=== PATIENT | male | born 1935 | race Two or more races ===

== ENCOUNTER 2021-10-11 12:59 | Outpatient (CLI) | payer OTHER | END 2021-10-11 13:02 | disposition home or self-care (01) | LOC: LAB 12:59 | PROVIDERS: ATTEND Urology | DX: N30.00 Acute cystitis without hematuria (principal) ==

== ENCOUNTER 2021-10-12 09:40 | Outpatient (CLI) | payer OTHER | END 2021-10-12 09:44 | disposition home or self-care (01) | LOC: LAB 09:40 | PROVIDERS: ATTEND Urology | DX: I11.9 Hypertensive heart disease without heart failure (principal); R33.9 Retention of urine, unspecified ==

== ENCOUNTER 2021-10-14 10:30 | Emergency (ER) | payer OTHER ==
[~2021-10-14] VITALS: Ht 167.6 cm; Wt 62.6 kg
[2021-10-14] MEDS ORDERED: LOSARTAN-HCTZ1 EAC1 PO (11:30)
[2021-10-14] MEDS ORDERED: TAMS0.4C PO (11:30)
[2021-10-14] MEDS ORDERED: FINASTERIDE5 MG PO (11:31)
[2021-10-14] MEDS ORDERED: TRICOR145 MG PO (11:31)
[2021-10-14] MEDS ORDERED: CEFDINIR300 MG PO (11:32)
[2021-10-14] MEDS ORDERED: ANTIVER (11:32)
== END 2021-10-14 15:15 | disposition left against medical advice (07) ==
LOC: ER 10:30
DX: N39.0 Urinary tract infection, site not specified (principal); B96.5 Pseudomonas (aeruginosa) (mallei) (pseudomallei) as the cause of diseases classified elsewhere; Z16.24 Resistance to multiple antibiotics; Z87.440 Personal history of urinary (tract) infections; N40.0 Benign prostatic hyperplasia without lower urinary tract symptoms; I10 Essential (primary) hypertension

== ENCOUNTER 2021-10-17 12:42 | Outpatient (CLI) | payer OTHER ==
[~2021-10-17 12:42] MED LIST: ANTIVER; CEFDINIR300 MG PO; FINASTERIDE5 MG PO; LOSARTAN-HCTZ1 EAC1 PO; TAMS0.4C PO; TRICOR145 MG PO
== END 2021-10-17 12:43 | disposition home or self-care (01) ==
LOC: RAD 12:42
PROVIDERS: ATTEND Urology
DX: I11.9 Hypertensive heart disease without heart failure (principal)

== ENCOUNTER → 2021-10-19 | Outpatient (CLI) | payer OTHER ==
[~2021-10-19] MED LIST changes: +MECLIZINE HCL12.5 MG
== END | disposition home or self-care (01) ==
LOC: NUCLEAR 09:52
PROVIDERS: ATTEND Internal Medicine Geriatric Medicine
DX: I11.0 Hypertensive heart disease with heart failure (principal); I50.9 Heart failure, unspecified

== ENCOUNTER 2021-10-20 10:29 | Outpatient (CLI) | payer OTHER ==
[~2021-10-20 10:29] MED LIST changes: -MECLIZINE HCL12.5 MG
== END 2021-10-20 10:30 | disposition home or self-care (01) ==
LOC: LAB 10:29
PROVIDERS: ATTEND Urology
DX: N30.00 Acute cystitis without hematuria (principal)

== ENCOUNTER 2021-10-21 10:15 | Inpatient (IN) | payer OTHER ==
[~2021-10-21] VITALS: Ht 172.7 cm; Wt 64.9 kg
[2021-10-26] MEDS ORDERED: MECLIZINE HCL12.5 MG (08:41)
== END 2021-10-27 10:53 | disposition home or self-care (01) | DRG 713 ==
LOC: SURG 10-26 06:00 → O/R 10-26 06:00 → SURH 10-26 10:15 → SURG 10-26 12:11
PROVIDERS: ADMIT Urology; ATTEND Urology
PROC: 0VT08ZZ Resection of Prostate, Via Natural or Artificial Opening Endoscopic (ICD-10-PCS; principal; 2021-10-26 11:30)
DX: N40.1 Benign prostatic hyperplasia with lower urinary tract symptoms (principal); N39.0 Urinary tract infection, site not specified; R33.8 Other retention of urine; N41.1 Chronic prostatitis; N20.9 Urinary calculus, unspecified; N42.89 Other specified disorders of prostate; I11.9 Hypertensive heart disease without heart failure; G31.84 Mild cognitive impairment of uncertain or unknown etiology; Z78.1 Physical restraint status

== ENCOUNTER 2021-11-07 13:39 | Outpatient (CLI) | payer OTHER ==
[~2021-11-07 13:39] MED LIST changes: +MECLIZINE HCL12.5 MG
== END 2021-11-07 13:43 | disposition home or self-care (01) ==
LOC: LAB 13:39
PROVIDERS: ATTEND Urology
DX: N30.00 Acute cystitis without hematuria (principal)

== ENCOUNTER 2021-11-21 11:17 | Outpatient (CLI) | payer OTHER | END 2021-11-21 11:24 | disposition home or self-care (01) | LOC: LAB 11:17 | PROVIDERS: ATTEND Urology | DX: N30.00 Acute cystitis without hematuria (principal) ==

== ENCOUNTER → 2021-12-20 09:48 | Outpatient (CLI) | payer OTHER | END | disposition home or self-care (01) | LOC: LAB 09:48 | PROVIDERS: ATTEND Urology | DX: N30.00 Acute cystitis without hematuria (principal) ==

== ENCOUNTER 2022-02-02 16:46 | Outpatient (CLI) | payer OTHER | END 2022-02-02 16:49 | disposition home or self-care (01) | LOC: LAB 16:46 | PROVIDERS: ATTEND Urology | DX: N30.10 Interstitial cystitis (chronic) without hematuria (principal) ==

== ENCOUNTER 2023-06-05 17:22 | Emergency (ER) | payer OTHER ==
[~2023-06-05] VITALS: Ht 172.7 cm; Wt 66.7 kg
[~2023-06-05 17:22] MED LIST changes: +DICLOFENAC EPO1 EACH TD; +LIDOCAINE15 GM TOP; +TRAMADOL HCL50 MG PO
[2023-06-05 19:18] LABS: HEMATOCRIT 37.9 % (39.0-48.0); HEMOGLOBIN 13.1 g/dL (13-16.00); MEAN CELL VOLUME 86.2 fL (80.0-100.00); MEAN CORPUSCULAR HEMOGLOBIN 29.7 pg (27.00-32.0); MEAN CORPUSCULAR HGB CONC 34.5 g/dl (32.0-36.0); PLATELET COUNT 145 K/uL (150-450); RED CELL DISTRIBUTION WIDTH 13.7 % (11.5-14.5)
[2023-06-05 19:37] LABS: CALCIUM 9.3 mg/dL (8.5-10.1); CREATININE SERUM 1.17 mg/dL (0.70-1.30); GFR 58.97; POTASSIUM 3.51 mEq/L (3.5-5.1)
== END 2023-06-05 23:40 | disposition home or self-care (01) ==
LOC: ER 17:22
PROVIDERS: Emergency Medicine
DX: M54.59 Other low back pain (principal)
CPT/HCPCS: 36415; 70450; 72131; 93005; 96365; 96366; 99284; J7030

== ENCOUNTER 2023-08-23 15:25 | Inpatient (IN) | payer OTHER ==
[~2023-08-23] VITALS: Ht 172.7 cm; Wt 65.8 kg
[2023-08-23 18:49] LABS: HEMATOCRIT 35.7 % (39.0-48.0); HEMOGLOBIN 12.2 g/dL (13-16.00); MEAN CELL VOLUME 85.6 fL (80.0-100.00); MEAN CORPUSCULAR HEMOGLOBIN 29.2 pg (27.00-32.0); MEAN CORPUSCULAR HGB CONC 34.1 g/dl (32.0-36.0); RED BLOOD COUNT 4.17 M/uL (4.00-6.00); RED CELL DISTRIBUTION WIDTH 14.5 % (11.5-14.5)
[2023-08-23 18:50] LABS: PLATELET COUNT 107 K/uL (150-450)
[2023-08-23 19:19] LABS: ALBUMIN 3.6 gm/dL (3.4-5.0); BILIRUBIN TOTAL 0.64 mg/dL (0.3-1.2); CREATININE SERUM 1.49 mg/dL (0.70-1.30); GFR 44.61; GLOBULINA 2.7 G/DL (2.4-3.5); POTASSIUM 3.25 mEq/L (3.5-5.1); TOTAL PROTEIN 6.3 gm/dL (6.4-8.2)
[2023-08-23 19:23] LABS: URINE APPEARANCE Clear; URINE BILIRRUBIN Negative (NEGATIVE); URINE BLOOD Negative; URINE COLOR Yellow; URINE GLUCOSE Negative (NEGATIVE); URINE LEUKOCYTE Trace; URINE NITRATE Negative; URINE PROTEIN 30 (NEGATIVE); URINE UROBILINOGEN 0.2 E.U./dl
[2023-08-23 19:24] LABS: URINE BACTERIA 7.5 uL (0.0-1933); URINE EPITHELIAL CELLS 1.5 uL (0.0-38.8); URINE RBC 3.1 uL (0.0-20.8); URINE WBC 16.8 uL (0.0-23.2)
[2023-08-23] MEDS ORDERED: CLOPIDOGREL BISULFATE 75 MG TABLET PO SCH (22:35)
[2023-08-23] MEDS ORDERED: CEFTRIAXONE SODIUM 2,000 MG in 0.9 % SODIUM CHLORIDE 100 ML IV SCH (22:35)
[2023-08-23] MEDS ORDERED: PANTOPRAZOLE SODIUM 40 MG/VIAL VIAL IV SCH (22:36)
[2023-08-23] MEDS ORDERED: 0.9 % SODIUM CHLORIDE 1,000 ML IV SCH (22:45)
[2023-08-23] MEDS ORDERED: DONEPEZIL HCL 10 MG TABLET PO SCH (22:53)
[2023-08-23] MEDS ORDERED: ATORVASTATIN CALCIUM 40 MG TABLET PO SCH (23:12)
[2023-08-23] MEDS ORDERED: POTASSIUM CHLORIDE 20MEQ/100ML H2O PB IV ONE (23:30)
[2023-08-24 00:10] LABS: ERYTHROCYTE SEDIMENTATION RATE 6 mm/hr
[2023-08-24 00:22] LABS: PLT IN CITRATE 105 K/uL (150-450)
[2023-08-24 00:38] LABS: D DIMER 5.82 MG/L; PARTIAL THROMBOPLASTIN TIME 27.6 SECONDS (22.0-34.0)
[2023-08-24 00:42] LABS: INR 1.18; PROTHROMBIN TIME 12.2 SECONDS (9.0-11.5)
[2023-08-24] MEDS ORDERED: ENOXAPARIN SODIUM 40 MG/0.4 ML SYRINGE SUBCUTANEO STA (01:24)
[2023-08-24 02:10] LABS: ABG PH 7.469 (7.35-7.45); ABG pCO2 31.2 mmHg (35-45); BASE EXCESS -0.5 mmol/l; BICARBONATE 22.1 mmol/l (23-25); SaO2 96.8 %; Tco2 23.1 mmol/l; allen test SATISFACTORY; o2 21 %; puncture site RADIAL RIGHT
[2023-08-24 07:26] LABS: CHOL HDL RATIO 2.3 (0-5.0); CHOLESTEROL 108 mg/dL (0-200); HDL 48 mg/dl (40-60); LDL 42 mg/dl (0-130); PROSTATIC SPECIFIC ANTIGEN < 0.010 NG/ML (0.010-4.00); TRIGLYCERIDES 88 mg/dL (0-150); VLDL 17 (0-39)
[2023-08-24] MEDS ORDERED: LOSARTAN POTASSIUM 25 MG TABLET PO SCH (09:00)
[2023-08-24] MEDS ORDERED: FINASTERIDE 5 MG TABLET PO SCH (09:00)
[2023-08-24] MEDS ORDERED: ENOXAPARIN SODIUM 40 MG/0.4 ML SYRINGE SUBCUTANEO SCH (09:00)
[2023-08-24] MEDS ORDERED: TAMSULOSIN HCL 0.4 MG CAP PO SCH (09:00)
[2023-08-24] MEDS ORDERED: NYSTATIN 15 GM,SILVER SULFADIAZINE 50 GM,ZINC OXIDE 30 GM TOP SCH (11:00)
[2023-08-25 05:45] LABS: ALBUMIN 2.7 gm/dL (3.4-5.0); BILIRUBIN TOTAL 0.26 mg/dL (0.3-1.2); CALCIUM 7.9 mg/dL (8.5-10.1); CREATININE SERUM 1.03 mg/dL (0.70-1.30); GFR 68.31; GLOBULINA 2.3 G/DL (2.4-3.5); POTASSIUM 3.55 mEq/L (3.5-5.1)
[2023-08-26 05:49] LABS: HEMATOCRIT 36.7 % (39.0-48.0); HEMOGLOBIN 12.5 g/dL (13-16.00); MEAN CELL VOLUME 86.7 fL (80.0-100.00); MEAN CORPUSCULAR HEMOGLOBIN 29.6 pg (27.00-32.0); MEAN CORPUSCULAR HGB CONC 34.1 g/dl (32.0-36.0); RED BLOOD COUNT 4.23 M/uL (4.00-6.00); RED CELL DISTRIBUTION WIDTH 14.4 % (11.5-14.5)
[2023-08-26 05:56] LABS: PLATELET COUNT 105 K/uL (150-450)
[2023-08-26 06:24] LABS: CALCIUM 8.8 mg/dL (8.5-10.1); CREATININE SERUM 1.07 mg/dL (0.70-1.30); GFR 65.37; MAGNESIUM 2.2 mg/dL (1.8-2.4); POTASSIUM 3.76 mEq/L (3.5-5.1)
[2023-08-27 16:19] LABS: PH,URINE 7.5 (5.0-8.0); URINE APPEARANCE Clear; URINE BILIRRUBIN Negative (NEGATIVE); URINE BLOOD Large; URINE COLOR Yellow; URINE GLUCOSE Negative (NEGATIVE); URINE LEUKOCYTE Small; URINE NITRATE Negative; URINE PROTEIN Negative (NEGATIVE); URINE UROBILINOGEN 0.2 E.U./dl
[2023-08-27 16:20] LABS: URINE BACTERIA 52.9 uL (0.0-1933); URINE RBC 935.7 uL (0.0-20.8); URINE WBC 48.5 uL (0.0-23.2)
[2023-08-27 16:41] LABS: URINE EPITHELIAL CELLS 0.1 uL (0.0-38.8); URINE YEAST FEW /hpf
[2023-08-28 07:51] LABS: HEMATOCRIT 36.6 % (39.0-48.0); HEMOGLOBIN 12.7 g/dL (13-16.00); MEAN CELL VOLUME 85.5 fL (80.0-100.00); MEAN CORPUSCULAR HEMOGLOBIN 29.6 pg (27.00-32.0); MEAN CORPUSCULAR HGB CONC 34.6 g/dl (32.0-36.0); RED BLOOD COUNT 4.28 M/uL (4.00-6.00); RED CELL DISTRIBUTION WIDTH 14.2 % (11.5-14.5)
[2023-08-28 07:52] LABS: PLATELET COUNT 121 K/uL (150-450)
[2023-08-28 08:34] LABS: ALBUMIN 3.1 gm/dL (3.4-5.0); ALKALINE PHOSPHATASE 71 U/L (50-136); ALT/SGPT 31 U/L (12-78); ANION GAP 8 (10.0-20.0); AST/SGOT 34 U/L (15-37); BLOOD UREA NITROGEN 13 mg/dL (7-18); BUN CREA RATIO 18 (7.0-25.0); CALCIUM 8.6 mg/dL (8.5-10.1); CARBON DIOXIDE 29 mEq/L (21-32); CHLORIDE 108 mmol/L (98-107); CREATININE SERUM 0.74 mg/dL (0.70-1.30); GFR 100.05; GLOBULINA 2.6 G/DL (2.4-3.5); GLUCOSE FASTING 100 mg/dL (65-100); LDH 143 U/L (87-241); OSMOLALITY SERUM 281 MOSM/KG (275-295); PHOSPHOROUS 2.5 mg/dL (2.5-4.9); POTASSIUM 3.78 mEq/L (3.5-5.1); SODIUM 141 mmol/L (136-145); TOTAL PROTEIN 5.7 gm/dL (6.4-8.2)
[2023-08-28] MEDS ORDERED: LOSARTAN/HYDROCHLOROTHIAZIDE 1 UDTAB TABLET PO STA (08:41)
[2023-08-28] MEDS ORDERED: LOSARTAN POTASSIUM 50 MG TABLET PO STA ×2 (08:43→08:45)
[2023-08-28 08:46] LABS: C-REACTIVE PROTEIN 0.87 MG/DL (0.00-0.29)
[2023-08-28] MEDS ORDERED: LOSARTAN/HYDROCHLOROTHIAZIDE 1 UDTAB TABLET PO SCH (09:00)
[2023-08-28] MEDS ORDERED: PANTOPRAZOLE SODIUM 40 MG TABLET.DR PO SCH (09:00)
[2023-08-28] MEDS ORDERED: DIATRIZOATE MEGLUMINE, SODIUM 30 ML BOTTLE PO ONE (09:15)
[2023-08-28 14:34] LABS: PLATELET ESTIMATE NORMAL (NORMAL)
[2023-08-28 17:06] LABS: PROSTATIC SPECIFIC ANTIGEN < 0.010 NG/ML (0.010-4.00)
[2023-08-29] MEDS ORDERED: LOSARTAN POTASSIUM 50 MG TABLET PO SCH (09:00)
[2023-08-29] MEDS ORDERED: LACTULOSE 10 G/15 ML ML RECTAL ONE (09:15)
[2023-08-29] MEDS ORDERED: POLY119PG PO (14:45)
[2023-08-29] MEDS ORDERED: INTESTINEX680 M1 PO (14:45)
[2023-08-29] MEDS ORDERED: CEFDINIR300 MG PO (14:46)
== END 2023-08-29 18:11 | disposition home or self-care (01) | DRG 871 ==
LOC: ER → ICU-2 22:54 → SEC-K 08-26 12:32 → MEDJ 08-26 12:42
PROVIDERS: Emergency Medicine; General Practice; Internal Medicine; Internal Medicine Infectious Disease; ADMIT Internal Medicine; ATTEND Internal Medicine
PROC: B020ZZZ Computerized Tomography (CT Scan) of Brain (ICD-10-PCS; principal; 2023-08-23)
PROC: B030ZZZ Magnetic Resonance Imaging (MRI) of Brain (ICD-10-PCS; 2023-08-23)
PROC: B345ZZZ Ultrasonography of Bilateral Common Carotid Arteries (ICD-10-PCS; 2023-08-23)
PROC: B348ZZZ Ultrasonography of Bilateral Internal Carotid Arteries (ICD-10-PCS; 2023-08-23)
PROC: B246ZZZ Ultrasonography of Right and Left Heart (ICD-10-PCS; 2023-08-23)
PROC: 4A12X4Z Monitoring of Cardiac Electrical Activity, External Approach (ICD-10-PCS; 2023-08-23)
PROC: BB24ZZZ Computerized Tomography (CT Scan) of Bilateral Lungs (ICD-10-PCS; 2023-08-27)
PROC: BW21YZZ Computerized Tomography (CT Scan) of Abdomen and Pelvis using Other Contrast (ICD-10-PCS; 2023-08-28)
DX: A41.9 Sepsis, unspecified organism (principal); I21.A1 Myocardial infarction type 2; I24.9 Acute ischemic heart disease, unspecified; N17.9 Acute kidney failure, unspecified; F05 Delirium due to known physiological condition; B37.49 Other urogenital candidiasis; K59.09 Other constipation; E88.89 Other specified metabolic disorders; F03.90 Unspecified dementia, unspecified severity, without behavioral disturbance, psychotic disturbance, mood disturbance, and anxiety; G25.5 Other chorea; D69.6 Thrombocytopenia, unspecified; I65.23 Occlusion and stenosis of bilateral carotid arteries; I12.9 Hypertensive chronic kidney disease with stage 1 through stage 4 chronic kidney disease, or unspecified chronic kidney disease; N18.9 Chronic kidney disease, unspecified
CPT/HCPCS: 70544

== ENCOUNTER 2024-06-02 19:51 | Inpatient (IN) | payer OTHER ==
[~2024-06-02] VITALS: Ht 175.3 cm; Wt 65.8 kg
[~2024-06-02 19:51] MED LIST changes: +ARICEPT5 MG PO; +INTESTINEX680 M1 PO; +POLY119PG PO
[2024-06-02 21:05] LABS: HEMATOCRIT 37.6 % (39.0-48.0); HEMOGLOBIN 12.7 g/dL (13-16.00); MEAN CELL VOLUME 86.7 fL (80.0-100.00); MEAN CORPUSCULAR HEMOGLOBIN 29.2 pg (27.00-32.0); MEAN CORPUSCULAR HGB CONC 33.7 g/dl (32.0-36.0); PLATELET COUNT 182 K/uL (150-450); RED BLOOD COUNT 4.34 M/uL (4.00-6.00); RED CELL DISTRIBUTION WIDTH 13.9 % (11.5-14.5)
[2024-06-02 21:12] LABS: ABG PH 7.459 (7.35-7.45); ABG pCO2 31.4 mmHg (35-45)
[2024-06-02 21:13] LABS: ABG PO2 57.5 mmHg (80-100); BASE EXCESS -1.1 mmol/l; BICARBONATE 21.7 mmol/l (23-25); SaO2 91.1 %; Tco2 22.7 mmol/l; allen test SATISFACTORY; o2 21 %; puncture site RADIAL RIGHT
[2024-06-02 21:22] LABS: ALBUMIN 3.7 gm/dL (3.4-5.0); BILIRUBIN TOTAL 0.49 mg/dL (0.3-1.2); CALCIUM 9.1 mg/dL (8.5-10.1); CREATININE SERUM 1.27 mg/dL (0.70-1.30); GFR 53.52; GLOBULINA 3.1 G/DL (2.4-3.5); POTASSIUM 3.66 mEq/L (3.5-5.1); TOTAL PROTEIN 6.8 gm/dL (6.4-8.2)
[2024-06-02] MEDS ORDERED: METHYLPREDNISOLONE SOD SUCC 125 MG VIAL ONE (22:32)
[2024-06-02] MEDS ORDERED: ENOXAPARIN SODIUM 40 MG/0.4 ML SYRINGE SUBCUTANEO ONE (23:27)
[2024-06-03 00:21] LABS: INR 1.19; PROTHROMBIN TIME 12.8 SECONDS (9.0-11.5)
[2024-06-03 00:36] LABS: D DIMER 18.94 MG/L
[2024-06-03 10:11] VITALS: O2SAT 92
[2024-06-03] MEDS ORDERED: FAMOTIDINE/PF 20 MG in 0.9 % SODIUM CHLORIDE 100 ML IV SCH (10:53)
[2024-06-03] MEDS ORDERED: ENOXAPARIN SODIUM 40 MG/0.4 ML SYRINGE SUBCUTANEO SCH (10:54)
[2024-06-03] MEDS ORDERED: LEVALBUTEROL HCL 0.63 MG/3 ML SOLUTION IH ONE (10:54)
[2024-06-03] MEDS ORDERED: IPRATROPIUM BROMIDE 0.5 MG/2.5 ML AMPUL.NEB IH ONE (10:54)
[2024-06-03] MEDS ORDERED: 0.9 % SODIUM CHLORIDE 1,000 ML IV SCH (11:00)
[2024-06-03] MEDS ORDERED: LOSARTAN/HYDROCHLOROTHIAZIDE 1 UDTAB TABLET PO SCH (11:20)
[2024-06-03] MEDS ORDERED: METHYLPREDNISOLONE SOD SUCC 40 MG VIAL IV SCH ×2 (11:20→17:00)
[2024-06-03] MEDS ORDERED: DONEPEZIL HCL 5 MG TABLET PO SCH (11:21)
[2024-06-03] MEDS ORDERED: FINASTERIDE 5 MG TABLET PO SCH (11:22)
[2024-06-03] MEDS ORDERED: TAMSULOSIN HCL 0.4 MG CAP PO SCH (11:22)
[2024-06-03] MEDS ORDERED: ACETAMINOPHEN 500 MG GEL..CAP PO PRN (11:30)
[2024-06-03 11:48] LABS: ABG PH 7.444 (7.35-7.45); ABG PO2 104.3 mmHg (80-100); ABG pCO2 28.3 mmHg (35-45)
[2024-06-03 11:49] LABS: BASE EXCESS -3.6 mmol/l; SaO2 98.2 %; Tco2 19.8 mmol/l; allen test SATISFACTORY; o2 31 %; puncture site RADIAL RIGHT
[2024-06-03] MEDS ORDERED: LEVALBUTEROL HCL 1.25 MG/3 ML SOLUTION IH SCH (13:00)
[2024-06-03] MEDS ORDERED: IPRATROPIUM BROMIDE 0.5 MG/2.5 ML AMPUL.NEB IH SCH (13:00)
[2024-06-03 13:46] VITALS: O2SAT 99
[2024-06-03 16:49] VITALS: O2SAT 90
[2024-06-03 16:59] VITALS: BP 127/75; O2SAT 97
[2024-06-03 17:27] LABS: URINE APPEARANCE Cloudy; URINE BILIRRUBIN Negative (NEGATIVE); URINE BLOOD Negative; URINE COLOR Yellow; URINE KETONE Negative (NEGATIVE); URINE LEUKOCYTE Large; URINE NITRATE Negative; URINE PROTEIN Trace (NEGATIVE); URINE UROBILINOGEN 0.2 E.U./dl
[2024-06-03 17:31] LABS: URINE CAST 1.91 uL (0.0-1.40); URINE EPITHELIAL CELLS 8.3 uL (0.0-38.8); URINE RBC 44.6 uL (0.0-20.8); URINE WBC 405.9 uL (0.0-23.2)
[2024-06-03 17:45] LABS: URINE GLUCOSE 100 MG/DL (NEGATIVE)
[2024-06-03 17:46] VITALS: BP 160/80; O2SAT 97
[2024-06-03 17:46] LABS: URINE YEAST MODERATE /hpf
[2024-06-03] MEDS ORDERED: MONTELUKAST SODIUM 10 MG TABLET PO SCH (21:00)
[2024-06-03 22:16] VITALS: O2SAT 95
[2024-06-04] VITALS (8 sets, daily range): BP systolic 127–152; BP diastolic 67–81; O2SAT 94–100
[2024-06-04 15:08] LABS: HEMATOCRIT 38.5 % (39.0-48.0); HEMOGLOBIN 12.9 g/dL (13-16.00); MEAN CORPUSCULAR HEMOGLOBIN 29.1 pg (27.00-32.0); MEAN CORPUSCULAR HGB CONC 33.4 g/dl (32.0-36.0); PLATELET COUNT 209 K/uL (150-450); RED BLOOD COUNT 4.43 M/uL (4.00-6.00); RED CELL DISTRIBUTION WIDTH 14.3 % (11.5-14.5)
[2024-06-04 15:33] LABS: CREATININE SERUM 1.22 mg/dL (0.70-1.30); GFR 56.06; POTASSIUM 4.08 mEq/L (3.5-5.1)
[2024-06-05 00:02] VITALS: O2SAT 93
[2024-06-05 00:44] VITALS: BP 108/75; O2SAT 98
[2024-06-05 06:27] VITALS: O2SAT 92
[2024-06-05] MEDS ORDERED: AMLODIPINE BESYLATE 5 MG TABLET PO SCH (09:00)
[2024-06-05] MEDS ORDERED: LOSARTAN POTASSIUM 50 MG TABLET PO SCH (09:00)
[2024-06-05 09:15] VITALS: O2SAT 96
[2024-06-05 09:28] VITALS: BP 134/85; O2SAT 98
== END 2024-06-05 11:54 | disposition home or self-care (01) | DRG 191 ==
LOC: ER 19:51 → MEDI 23:00 → MEDJ 06-03 13:24
PROVIDERS: General Practice; ADMIT Student in an Organized Health Care Education/Training Program; ATTEND Student in an Organized Health Care Education/Training Program
PROC: BW24ZZZ Computerized Tomography (CT Scan) of Chest and Abdomen (ICD-10-PCS; 2024-06-02)
PROC: BW28ZZZ Computerized Tomography (CT Scan) of Head (ICD-10-PCS; 2024-06-02)
PROC: B345ZZZ Ultrasonography of Bilateral Common Carotid Arteries (ICD-10-PCS; 2024-06-02)
PROC: B24BZZZ Ultrasonography of Heart with Aorta (ICD-10-PCS; 2024-06-02)
PROC: 4A12X4Z Monitoring of Cardiac Electrical Activity, External Approach (ICD-10-PCS; principal; 2024-06-03)
DX: J44.1 Chronic obstructive pulmonary disease with (acute) exacerbation (principal); J98.11 Atelectasis; N13.8 Other obstructive and reflux uropathy; N39.0 Urinary tract infection, site not specified; N17.9 Acute kidney failure, unspecified; R09.02 Hypoxemia; R55 Syncope and collapse; J45.40 Moderate persistent asthma, uncomplicated; I10 Essential (primary) hypertension; S09.90XA Unspecified injury of head, initial encounter; W13.3XXA Fall through floor, initial encounter; Y93.9 Activity, unspecified; Y92.9 Unspecified place or not applicable

== ENCOUNTER 2024-06-07 11:44 | Inpatient (IN) | payer OTHER ==
[~2024-06-07] VITALS: Ht 170.2 cm; Wt 65.8 kg
[2024-06-07] MEDS ORDERED: PIPERACILLIN/TAZOBACTAM SODIUM 3.375 GM VIAL IV ONE ×2 (12:30→12:52)
[2024-06-07] MEDS ORDERED: IPRATROPIUM BROMIDE 0.5 MG/2.5 ML AMPUL.NEB IH ONE (12:30)
[2024-06-07] MEDS ORDERED: LEVALBUTEROL HCL 1.25 MG/3 ML SOLUTION IH ONE (12:30)
[2024-06-07] MEDS ORDERED: FAMOtidine 10 MG/ML (4ML VIAL) IV ONE (12:30)
[2024-06-07] MEDS ORDERED: 0.9 % SODIUM CHLORIDE 1,000 ML IV ONE (12:30)
[2024-06-07] MEDS ORDERED: FAMOTIDINE/PF 20 MG/2 ML VIAL ONE (12:52)
[2024-06-07 13:26] LABS: HEMATOCRIT 39.8 % (39.0-48.0); HEMOGLOBIN 13.5 g/dL (13-16.00); MEAN CELL VOLUME 86.4 fL (80.0-100.00); MEAN CORPUSCULAR HEMOGLOBIN 29.4 pg (27.00-32.0); PLATELET COUNT 194 K/uL (150-450); RED BLOOD COUNT 4.61 M/uL (4.00-6.00); RED CELL DISTRIBUTION WIDTH 14.4 % (11.5-14.5)
[2024-06-07 13:39] LABS: ERYTHROCYTE SEDIMENTATION RATE 19 mm/hr
[2024-06-07 13:46] LABS: INR 1.2; PARTIAL THROMBOPLASTIN TIME 26.9 SECONDS (22.0-34.0); PROTHROMBIN TIME 12.9 SECONDS (9.0-11.5)
[2024-06-07 13:59] LABS: ALBUMIN 3.7 gm/dL (3.4-5.0); BILIRUBIN TOTAL 0.97 mg/dL (0.3-1.2); CALCIUM 8.9 mg/dL (8.5-10.1); CREATININE SERUM 1.36 mg/dL (0.70-1.30); GFR 49.45; GLOBULINA 3.6 G/DL (2.4-3.5); POTASSIUM 3.72 mEq/L (3.5-5.1); TOTAL PROTEIN 7.3 gm/dL (6.4-8.2)
[2024-06-07 14:10] LABS: C-REACTIVE PROTEIN 5.18 MG/DL (0.00-0.29)
[2024-06-07 14:42] LABS: ABG PO2 63.5 mmHg (80-100); ABG pCO2 25.7 mmHg (35-45); BASE EXCESS -2.4 mmol/l; BICARBONATE 19.2 mmol/l (23-25); SaO2 93.7 %
[2024-06-07 14:43] LABS: allen test SATISFACTORY; o2 21 %; puncture site RADIAL LEFT
[2024-06-07] MEDS ORDERED: OSELTAMIVIR PHOSPHATE 75 MG CAPSULE PO SCH ×2 (22:45→22:47)
[2024-06-07] MEDS ORDERED: ACETAMINOPHEN 325 MG SUPP.RECT RECTAL PRN (22:45)
[2024-06-07] MEDS ORDERED: 0.9 % SODIUM CHLORIDE 1,000 ML IV SCH (23:00)
[2024-06-08] MEDS ORDERED: IPRATROPIUM/ALBUTEROL SULFATE 3 ML AMPUL.NEB IH SCH
[2024-06-08] MEDS ORDERED: IPRATROPIUM/ALBUTEROL SULFATE 3 ML AMPUL.NEB IH ONE (00:49)
[2024-06-08 01:05] VITALS: BP 132/64; O2SAT 100
[2024-06-08 03:11] VITALS: BP 113/71; O2SAT 97
[2024-06-08 08:00] VITALS: BP 129/72; O2SAT 98
[2024-06-08] MEDS ORDERED: LOSARTAN POTASSIUM 50 MG TABLET PO SCH (09:00)
[2024-06-08] MEDS ORDERED: PANTOPRAZOLE SODIUM 40 MG/VIAL VIAL IV SCH (09:00)
[2024-06-08] MEDS ORDERED: LOSARTAN/HYDROCHLOROTHIAZIDE 1 UDTAB TABLET PO NR (10:15)
[2024-06-08] MEDS ORDERED: OSELTAMIVIR PHOSPHATE 30MG CAP PO SCH (17:00)
[2024-06-08] MEDS ORDERED: DONEPEZIL HCL 5 MG TABLET PO SCH (17:00)
[2024-06-08 17:37] VITALS: BP 117/73; O2SAT 97
[2024-06-09 03:02] VITALS: BP 117/70; O2SAT 97
[2024-06-09] MEDS ORDERED: LOSARTAN/HYDROCHLOROTHIAZIDE 1 UDTAB TABLET PO SCH (09:00)
[2024-06-09 09:04] VITALS: BP 116/69; O2SAT 97
[2024-06-09 16:50] VITALS: BP 169/85; O2SAT 95
[2024-06-09] MEDS ORDERED: CEFEPIME HCL 2,000 MG VIAL IV SCH (17:00)
[2024-06-10 03:03] VITALS: BP 107/71; O2SAT 94
[2024-06-10 11:18] VITALS: BP 122/66
[2024-06-10 11:39] LABS: HEMATOCRIT 36.7 % (39.0-48.0); HEMOGLOBIN 12.4 g/dL (13-16.00); MEAN CELL VOLUME 86.5 fL (80.0-100.00); MEAN CORPUSCULAR HEMOGLOBIN 29.1 pg (27.00-32.0); MEAN CORPUSCULAR HGB CONC 33.6 g/dl (32.0-36.0); PLATELET COUNT 149 K/uL (150-450); RED BLOOD COUNT 4.25 M/uL (4.00-6.00); RED CELL DISTRIBUTION WIDTH 14.5 % (11.5-14.5)
[2024-06-10 12:45] LABS: CALCIUM 8.5 mg/dL (8.5-10.1); CREATININE SERUM 1.28 mg/dL (0.70-1.30); GFR 53.04; POTASSIUM 3.18 mEq/L (3.5-5.1)
[2024-06-10] MEDS ORDERED: VANCOMYCIN HCL 1,000 MG VIAL IV NR (13:00)
[2024-06-10] MEDS ORDERED: POTASSIUM CHLORIDE 20MEQ/100ML H2O PB IV NR (15:00)
[2024-06-10] MEDS ORDERED: ENOXAPARIN SODIUM 40 MG/0.4 ML SYRINGE SUBCUTANEO SCH (17:00)
[2024-06-10] MEDS ORDERED: VANCOMYCIN HCL 1,000 MG VIAL IV SCH (17:00)
[2024-06-10] MEDS ORDERED: CEFTRIAXONE SODIUM 2,000 MG VIAL IV SCH (17:00)
[2024-06-10 18:44] VITALS: BP 109/61
[2024-06-11 02:46] VITALS: BP 119/70; O2SAT 95
[2024-06-11] MEDS ORDERED: VANCOMYCIN HCL 1,000 MG VIAL IV SCH ×2 (09:00→17:00)
[2024-06-11 09:03] LABS: HEMATOCRIT 32.1 % (39.0-48.0); HEMOGLOBIN 10.9 g/dL (13-16.00); MEAN CELL VOLUME 84.4 fL (80.0-100.00); MEAN CORPUSCULAR HEMOGLOBIN 28.8 pg (27.00-32.0); MEAN CORPUSCULAR HGB CONC 34.1 g/dl (32.0-36.0); PLATELET COUNT 135 K/uL (150-450); RED CELL DISTRIBUTION WIDTH 14.3 % (11.5-14.5)
[2024-06-11 09:40] VITALS: BP 112/63; O2SAT 96
[2024-06-11 09:43] LABS: CREATININE SERUM 1.38 mg/dL (0.70-1.30); GFR 48.63; POTASSIUM 4.01 mEq/L (3.5-5.1)
[2024-06-11] MEDS ORDERED: VANCOMYCIN HCL 1,000 MG VIAL IV NR (10:15)
[2024-06-11 19:10] VITALS: BP 106/64
[2024-06-11] MEDS ORDERED: CEFAZOLIN SODIUM 1,000 MG VIAL IV SCH (21:00)
[2024-06-12 02:17] VITALS: BP 104/59
[2024-06-12 07:41] LABS: HEMATOCRIT 29.6 % (39.0-48.0); HEMOGLOBIN 10.5 g/dL (13-16.00); MEAN CORPUSCULAR HGB CONC 35.3 g/dl (32.0-36.0); PLATELET COUNT 134 K/uL (150-450); RED BLOOD COUNT 3.48 M/uL (4.00-6.00); RED CELL DISTRIBUTION WIDTH 14.5 % (11.5-14.5)
[2024-06-12 08:14] LABS: CREATININE SERUM 1.3 mg/dL (0.70-1.30); GFR 52.1; POTASSIUM 3.99 mEq/L (3.5-5.1)
[2024-06-12 08:46] VITALS: BP 106/52
[2024-06-12] MEDS ORDERED: VANCOMYCIN HCL 1,000 MG VIAL IV SCH (09:00)
[2024-06-12 19:40] VITALS: BP 100/60; O2SAT 96
[2024-06-13 00:58] VITALS: BP 106/51; O2SAT 97
[2024-06-13 08:42] VITALS: BP 132/59
[2024-06-13] MEDS ORDERED: POLYETHYLENE GLYCOL 3350 17 GM BLIST.PACK PO SCH (17:00)
[2024-06-13 19:14] VITALS: BP 125/73
[2024-06-14 02:34] VITALS: BP 140/77; O2SAT 97
[2024-06-14 10:10] VITALS: BP 141/54; O2SAT 98
[2024-06-14 18:06] VITALS: BP 104/67; O2SAT 95
[2024-06-15 01:45] VITALS: BP 140/72; O2SAT 99
[2024-06-15 10:16] VITALS: BP 133/77; O2SAT 97
[2024-06-15 18:27] VITALS: BP 120/71; O2SAT 100
[2024-06-16 01:53] VITALS: BP 136/74; O2SAT 97
[2024-06-16 08:39] VITALS: BP 107/55
[2024-06-16 13:39] LABS: CALCIUM 8.5 mg/dL (8.5-10.1); CREATININE SERUM 0.65 mg/dL (0.70-1.30); GFR 115.93; POTASSIUM 4.99 mEq/L (3.5-5.1)
[2024-06-16 18:15] VITALS: BP 112/61
[2024-06-16 21:07] LABS: HEMATOCRIT 29.8 % (39.0-48.0); HEMOGLOBIN 10.2 g/dL (13-16.00); MEAN CELL VOLUME 84.7 fL (80.0-100.00); MEAN CORPUSCULAR HGB CONC 34.2 g/dl (32.0-36.0); PLATELET COUNT 191 K/uL (150-450); RED BLOOD COUNT 3.51 M/uL (4.00-6.00); RED CELL DISTRIBUTION WIDTH 14.1 % (11.5-14.5)
[2024-06-17 01:44] VITALS: BP 136/70; O2SAT 99
[2024-06-17 08:19] LABS: HEMOGLOBIN 9.5 g/dL (13-16.00); MEAN CELL VOLUME 86.6 fL (80.0-100.00); MEAN CORPUSCULAR HEMOGLOBIN 29.4 pg (27.00-32.0); MEAN CORPUSCULAR HGB CONC 33.9 g/dl (32.0-36.0); PLATELET COUNT 185 K/uL (150-450); RED BLOOD COUNT 3.24 M/uL (4.00-6.00); RED CELL DISTRIBUTION WIDTH 13.8 % (11.5-14.5)
[2024-06-17 09:01] VITALS: BP 125/59
[2024-06-17 09:08] LABS: CALCIUM 8.2 mg/dL (8.5-10.1); CREATININE SERUM 0.62 mg/dL (0.70-1.30); GFR 122.43; POTASSIUM 4.52 mEq/L (3.5-5.1)
[2024-06-17 16:45] VITALS: BP 119/60
[2024-06-17] MEDS ORDERED: CEFAZOLIN SODIUM 1,000 MG VIAL IV SCH (17:00)
[2024-06-18 01:52] VITALS: BP 103/59; O2SAT 98
[2024-06-18 09:51] VITALS: BP 90/53; O2SAT 98
[2024-06-18 17:46] VITALS: BP 138/75
[2024-06-18 17:47] VITALS: BP 138/75
[2024-06-19 03:59] VITALS: BP 145/66
[2024-06-19 09:33] VITALS: BP 132/80
[2024-06-19 14:44] LABS: HEMATOCRIT 30.8 % (39.0-48.0); HEMOGLOBIN 10.3 g/dL (13-16.00); MEAN CELL VOLUME 86.4 fL (80.0-100.00); MEAN CORPUSCULAR HGB CONC 33.5 g/dl (32.0-36.0); PLATELET COUNT 217 K/uL (150-450); RED BLOOD COUNT 3.57 M/uL (4.00-6.00); RED CELL DISTRIBUTION WIDTH 13.8 % (11.5-14.5)
[2024-06-19 18:23] VITALS: BP 138/78
[2024-06-20 02:43] VITALS: BP 114/57; O2SAT 98
[2024-06-20 09:35] VITALS: BP 122/68; O2SAT 98
== END 2024-06-20 17:54 | disposition home or self-care (01) | DRG 194 ==
LOC: ER 11:44 → MEDJ 06-08 00:30 → SURG 06-08 01:52 → MEDJ 06-08 02:01
PROVIDERS: General Practice; ADMIT Student in an Organized Health Care Education/Training Program; ATTEND Student in an Organized Health Care Education/Training Program
PROC: BW24ZZZ Computerized Tomography (CT Scan) of Chest and Abdomen (ICD-10-PCS; principal; 2024-06-07)
PROC: BW28ZZZ Computerized Tomography (CT Scan) of Head (ICD-10-PCS; 2024-06-07)
PROC: BW4GZZZ Ultrasonography of Pelvic Region (ICD-10-PCS; 2024-06-08)
PROC: BT4JZZZ Ultrasonography of Kidneys and Bladder (ICD-10-PCS; 2024-06-08)
PROC: 30243N1 Transfusion of Nonautologous Red Blood Cells into Central Vein, Percutaneous Approach (ICD-10-PCS; 2024-06-10)
PROC: B24BYZZ Ultrasonography of Heart with Aorta using Other Contrast (ICD-10-PCS; 2024-06-11)
PROC: 4A12X4Z Monitoring of Cardiac Electrical Activity, External Approach (ICD-10-PCS; 2024-06-16)
PROC: 02HV33Z Insertion of Infusion Device into Superior Vena Cava, Percutaneous Approach (ICD-10-PCS; 2024-06-19)
DX: J10.00 Influenza due to other identified influenza virus with unspecified type of pneumonia (principal); J44.1 Chronic obstructive pulmonary disease with (acute) exacerbation; J98.11 Atelectasis; N17.9 Acute kidney failure, unspecified; R78.81 Bacteremia; J81.1 Chronic pulmonary edema; G30.9 Alzheimer's disease, unspecified; F02.80 Dementia in other diseases classified elsewhere, unspecified severity, without behavioral disturbance, psychotic disturbance, mood disturbance, and anxiety; D72.829 Elevated white blood cell count, unspecified; A49.02 Methicillin resistant Staphylococcus aureus infection, unspecified site; D64.9 Anemia, unspecified; D69.6 Thrombocytopenia, unspecified